=== PATIENT | female | born 1965 | race Caucasian/White ===

== ENCOUNTER 2019-03-10 07:45 | Emergency (ER) | payer BC ==
[2019-03-10] MEDS: TETRACAINE 0.5% 4 ML OPH RIGHT EYE (08:09)
[2019-03-10] MEDS: FLUORESCEIN STRIP RIGHT EYE (08:09)
== END 2019-03-10 08:47 | disposition home or self-care (01) ==
LOC: FTE 08:47
DX: H20.9 Unspecified iridocyclitis (principal)
CPT/HCPCS: 99283

== ENCOUNTER 2019-04-02 01:10 | Emergency (ER) | payer OTHER, BC ==
[2019-04-02] MEDS: IBUPROFEN 800 MG TAB PO (01:21)
== END 2019-04-02 03:22 | disposition home or self-care (01) ==
LOC: E/R 01:10
DX: M25.561 Pain in right knee (principal); M25.512 Pain in left shoulder; M25.562 Pain in left knee; Z79.4 Long term (current) use of insulin
CPT/HCPCS: 73030; 73562-50; 99284-25